=== PATIENT | female | born 1990 | race Two or more races ===

== ENCOUNTER 2019-08-27 14:19 | Emergency (ER) | payer SELFPAY ==
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
--- NOTE | 2019-08-27 15:24 | CR ---
EXAM DATE: 08/27/19 PATIENT'S AGE: 29 Thoracic spine: AP, lateral and swimmer's views of the thoracic spine were obtained. Vertebral body heights and disc spaces are maintained. Minimal scoliosis is noted. No subluxation or fracture is appreciated. Impression: 1. Minimal scoliosis. 2. Thoracic spine study is otherwise unremarkable. Diagnostic code #2 Report Signed by Proxy. KRISHNA
--- NOTE | 2019-08-27 15:25 | CR ---
EXAM DATE: 08/27/19 PATIENT'S AGE: 29 Cervical spine: AP, lateral and odontoid views of the cervical spine were obtained. Comparison: No previous exam. Vertebral body heights and disc spaces are maintained. Prevertebral soft tissues are normal. No subluxation or fracture is appreciated. Impression: 1. No abnormality is appreciated on three view cervical spine study. Diagnostic code #1 Report Signed by Proxy. KRISHNA
== END 2019-08-27 16:00 | disposition home or self-care (01) ==
LOC: MW.ED 14:19
DX: S40.022A Contusion of left upper arm, initial encounter (principal); M62.830 Muscle spasm of back; Y09 Assault by unspecified means
CPT/HCPCS: 72040; 72040-26; 72072; 72072-26; 99284; 99284-25